=== PATIENT | male | born 1950 | race Caucasian/White ===

== ENCOUNTER 2018-02-16 02:03 | Emergency (ER) | payer BC, MEDICARE ==
--- NOTE | 2018-02-16 03:12 | ED ---
Melissa Marti Rebecca, scribed for Shai Hyman MD on 02/16/18 at 0236 . Complex/Multi-Sys Presentation - HPI Summary HPI Summary: Pt is a 67 y/o M who presents to ED c/o suspected FB in the left ear. Pt reports that at approximately 0130, he believes the cotton end of a Q-tip became lodged in the left ear. Denies any pain. - History Of Current Complaint Chief Complaint: EDEarPain Time Seen by Provider: 02/16/18 02:26 Hx Obtained From: Patient Onset/Duration: Still Present Severity Currently: None Location: Negative Aggravating Factor(s): Nothing Alleviating Factor(s): Nothing Associated Signs And Symptoms: Positive: Other - Suspected FB in the L ear - Allergies/Home Medications Allergies/Adverse Reactions: Allergies Allergy/AdvReac Type Severity Reaction Status Date / Time No Known Allergies Allergy Verified 02/16/18 02:10 PMH/Surg Hx/FS Hx/Imm Hx Respiratory History: Reports: Hx Asthma GI History: Reports: Other GI Disorders - Hx PUD Psychiatric History: Reports: Hx Depression Infectious Disease History: No Infectious Disease History: Denies: Traveled Outside the [place] in Last 30 Days - Family History Known Family History: Positive: Unknown - Pt is adopted - Social History Alcohol Use: None Substance Use Type: Reports: None Smoking Status (MU): Never Smoked Tobacco Review of Systems Negative: Fever Positive: Other - Suspected FB in the left ear; NEGATIVE: Pain All Other Systems Reviewed And Are Negative: Yes Physical Exam - Summary Physical Exam Summary: VITAL SIGNS: Reviewed. GENERAL: ~Patient is a well-developed and nourished male who is lying comfortable in the stretcher. Patient is not in any acute respiratory distress. HEAD AND FACE: No signs of trauma. No ecchymosis, hematomas or skull depressions. No sinus tenderness. EYES: PERRLA, EOMI x 2, No injected conjunctiva, no nystagmus. EARS: Abrasion to the external auditory canal of the left side. No foreign body and no bleeding. Hearing grossly intact. Tympanic membranes are within normal limits. MOUTH: Oropharynx within normal limits. NECK: Supple, trachea is midline, no adenopathy, no JVD, no carotid bruit, no c- spine tenderness, neck with full ROM. CHEST: Symmetric, no tenderness at palpation LUNGS: Clear to auscultation bilaterally. No wheezing or crackles. CVS: Regular rate and rhythm, S1 and S2 present, no murmurs or gallops appreciated. ABDOMEN: Soft, non-tender. No signs of distention. No rebound no guarding, and no masses palpated. Bowel sounds are normal. EXTREMITIES: FROM in all major joints, no edema, no cyanosis or clubbing. NEURO: Alert and oriented x 3. No acute neurological deficits. Speech is normal and follows commands. SKIN: Dry and warm Triage Information Reviewed: Yes Vital Signs On Initial Exam: Initial Vitals Temp Pulse Resp BP Pulse Ox 98.8 F 97 16 120/86 95 02/16/18 02:05 02/16/18 02:05 02/16/18 02:05 02/16/18 02:05 02/16/18 02:05 Vital Signs Reviewed: Yes Diagnostics - Vital Signs Vital Signs Temp Pulse Resp BP Pulse Ox 02/16/18 02:05 98.8 F 97 16 120/86 95 - Laboratory Lab Statement: Any lab studies that have been ordered have been reviewed, and results considered in the medical decision making process. Complex Multi-Symp Course/Dx Assessment/Plan: Pt is a 67 y/o M who presents to ED c/o suspected FB in the left ear. Pt reports that at approximately 0130, he believes the cotton end of a Q-tip became lodged in the left ear. Denies any pain. Upon evaluation, it is seen that there is raul brasion to the external auditory canal of the left ear. Pt will be D/C to home with Dx of injury of external auditory canal with floxin drops, to use 5 drops 2x a day and follow up with ENT on Sunday. He understands and agrees. - Diagnoses Provider Diagnoses: Injury of external auditory canal Discharge - Sign-Out/Discharge Documenting (check all that apply): Discharge/Admit/Transfer - Discharge - Discharge Plan Condition: Stable Disposition: HOME Patient Education Materials: Ofloxacin (Into the ear) Referrals: Corby Whitaker MD [Medical Doctor] - 02/19/18 Additional Instructions: Use Floxin drops, 5 drops at a time, two times a day. Avoid getting water in the ear. Follow up ENT on Sunday. RETURN TO ED FOR ANY NEW OR WORSENING SYMPTOMS. The documentation as recorded by the scribeMelissa Rebecca accurately reflects the service I personally performed and the decisions made by me, Shai Hyman MD.
[2018-02-16 03:15] VITALS: BP 113/77
[2018-02-16] MEDS ORDERED: Ofloxacin 0.3% OTIC.SOL* 5 ML BTL LEFT EAR SCH (09:00)
== END 2018-02-16 03:10 | disposition home or self-care (01) ==
LOC: ED 02:03
DX: S00.452A Superficial foreign body of left ear, initial encounter (principal); S09.91XA Unspecified injury of ear, initial encounter; X58.XXXA Exposure to other specified factors, initial encounter; Y92.9 Unspecified place or not applicable
CPT/HCPCS: 99282; A9270-GY